=== PATIENT | female | born 1970 | race Caucasian/White ===

== ENCOUNTER 2018-12-19 09:24 | Emergency (ER) | payer BC, OTHER ==
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
[2018-12-19 10:25] VITALS: BP 107/74
== END 2018-12-19 10:24 | disposition home or self-care (01) ==
LOC: ED 09:24
DX: S63.91XA Sprain of unspecified part of right wrist and hand, initial encounter (principal); S60.221A Contusion of right hand, initial encounter; W23.0XXA Caught, crushed, jammed, or pinched between moving objects, initial encounter; Y92.238 Other place in hospital as the place of occurrence of the external cause; E03.9 Hypothyroidism, unspecified
CPT/HCPCS: 99281